=== PATIENT | male | born 1950 | race Caucasian/White ===

== ENCOUNTER → 2018-04-22 07:28 | Outpatient (CLI) | payer MEDICARE, OTHER, SELFPAY ==
[2018-04-22 07:48] LABS: Add Manual Diff / Slide Review NO; Basophils Percent Auto 0.7 % (0-2); Eosinophils Percent Auto 6.7 % (2-4); Hematocrit 46.5 % (41-53); Hemoglobin 15.4 g/dL (13.5-17.5); Lymphocytes Percent Auto 30.7 % (25-40); Mean Corpuscular HGB Conc 33.1 % (30-36); Mean Corpuscular Hemoglobin 28.3 PG (26-34); Mean Corpuscular Volume 85.6 fL (80-100); Monocytes Percent Auto 10.4 % (3-14); Neutrophils Absolute Auto 2800 /uL (3000-5900); Neutrophils Percent Auto 51.5 % (50-75); Platelet Count 267 X10^3/uL (150-400); Red Blood Cell Count 5.43 X10^6/uL (4.5-5.9); White Blood Cell Count 5.5 X10^3/uL (4.5-11.0)
[2018-04-22 08:03] LABS: Alanine Aminotransferase 35 IU/L (21-72); Albumin 4.3 g/dL (3.5-5.0); Albumin Globulin Ratio 1.4 (1.0-2.8); Alkaline Phosphatase 39 U/L (38-126); Aspartate Aminotransferase 26 IU/L (17-59); BUN Creatinine Ratio 23.8 (6-22); Bilirubin Total 0.8 mg/dL (0.2-1.3); Blood Urea Nitrogen 31 mg/dL (9-20); Calcium 9.8 mg/dL (8.4-10.2); Carbon Dioxide 26 mmol/L (22-32); Chloride 103 mmol/L (98-107); Cholesterol 167 mg/dL (140-199); Estimated Glomerular Filt Rate 55.1 mL/min (>60); Glucose 96 mg/dL (80-110); HDL Cholesterol 38 mg/dL (40-60); HEMOLYSIS < 15 (0-50); LDL Cholesterol Calculated 109 mg/dL (<100); Potassium 4.6 mmol/L (3.4-5.1); Sodium 142 mmol/L (137-145); Total Protein 7.3 g/dL (6.3-8.2); Triglycerides 99 mg/dL (35-150)
[2018-04-22 08:34] LABS: Prostate Specific Antigen Scrn 1.91 ng/mL (0.1-4.0)
== END ==
PROVIDERS: PCP Internal Medicine; Visit Provider Internal Medicine
DX: I10 Essential (primary) hypertension (principal); E78.00 Pure hypercholesterolemia, unspecified
CPT/HCPCS: 36415; 80053; 80061; 85025; G0103

== ENCOUNTER → 2018-04-22 07:47 | Outpatient (CLI) | payer MEDICARE, OTHER, SELFPAY ==
--- NOTE | 2018-04-22 | DI.RAD.S_ITS ---
PROCEDURE: XR HIP W PEL IF DONE LT MIN 4V INDICATIONS: LEFT SIDED HIP PAIN TECHNIQUE: AP pelvis with lateral view of the left hip. COMPARISON: None. FINDINGS: Bones: No fractures or dislocations. Pelvic ring appears intact. No suspicious bony lesions. Soft tissues: The visualized bowel gas pattern is normal. No suspicious soft tissue calcifications. IMPRESSION: Asymmetric hip joint osteoarthritis, moderately severe on the left and mild on the right. No trauma found. Dictated by: Bang Pillai M.D. on 04/22/2018 at 9:43 Approved by: Bang Pillai M.D. on 04/22/2018 at 9:47
== END ==
PROVIDERS: Family Provider Internal Medicine; PCP Internal Medicine; Visit Provider Internal Medicine
DX: M16.0 Bilateral primary osteoarthritis of hip (principal); M25.552 Pain in left hip
CPT/HCPCS: 36415; 73522; 80053; 80061; 85025; G0103

== ENCOUNTER → 2018-09-02 11:42 | Outpatient (CLI) | payer MEDICARE, OTHER, SELFPAY ==
--- NOTE | 2018-09-02 | DI.MRI.S_ITS ---
PROCEDURE: MR WRIST LT WO CON INDICATIONS: Left wrist pain, TFCC injury. TECHNIQUE: Noncontrast coronal proton density fast spin echo and T2 fast spin echo with fat saturation; coronal 3-D gradient echo, axial T1 spin echo and T2 fast spin echo with fat saturation, sagittal T1 spin echo through the wrist. COMPARISON: [facility], CR, XR WRIST 3+ VIEWS LEFT, 08/30/2018, 13:52. FINDINGS: Image quality: There is mild inhomogeneous fat saturation. Bones and cartilage: The carpal bones are normally aligned. No bone marrow contusions or fractures. There were mild osteoarthritic changes with cartilage thinning and small foci of subchondral edema. This includes mild degeneration of the 1st carpometacarpal joint as well as mild degeneration in the carpus with scattered small foci of subchondral edema. Mild degeneration also demonstrated along the radiocarpal joint. No evidence for avascular necrosis. Carpal ligaments: The scapholunate and lunotriquetral ligaments appear intact. In the absence of intra-articular contrast, the extrinsic carpal ligaments are not well identified. On sagittal images, the pisohamate ligament appears intact. Triangular fibrocartilage complex: The triangular fibrocartilage demonstrates mild degenerative tearing with evaluation limited in the absence of intra-articular contrast. The adjacent meniscal homolog also demonstrates mildly degenerative signal. The extensor carpi ulnaris tendon is normal in location and morphology. Tendons and soft tissues: The carpal tunnel structures appear normal, including the median nerve. The ulnar nerve appears normal within Guyon's canal. All six extensor tendon compartments demonstrate normal morphology, without pathologic tendon sheath fluid. No soft tissue ganglion cysts. IMPRESSION: 1. Mild degenerative tearing of the triangular fibrocartilage 2. Mild osteoarthritic changes in the carpus and along the radiocarpal joint. Dictated by: Evelio Guevara M.D. on 09/02/2018 at 14:35 Approved by: Evelio Guevara M.D. on 09/02/2018 at 14:47
== END ==
PROVIDERS: PCP Internal Medicine; Visit Provider Orthopaedic Surgery
DX: S69.82XA Other specified injuries of left wrist, hand and finger(s), initial encounter (principal)
CPT/HCPCS: 73221

== ENCOUNTER → 2019-06-28 08:31 | Outpatient (CLI) | payer MEDICARE, OTHER, SELFPAY ==
--- NOTE | 2019-06-28 | DI.RAD.S_ITS ---
PROCEDURE: XR HIP W PEL IF DONE BILAT 2V INDICATIONS: chronic hip pain TECHNIQUE: AP pelvis with lateral view(s) of the bilateral hip(s). COMPARISON: [facility], RASHAD, XR HIP W PEL IF DONE ROSAURA 3TO4V, 04/22/2018, 7:52. FINDINGS: Bones: No fractures or dislocations. Pelvic ring appears intact. No suspicious bony lesions. Soft tissues: The visualized bowel gas pattern is normal. No suspicious soft tissue calcifications. IMPRESSION: Mild asymmetric hip joint osteoarthritis, left greater than right. Dictated by: Bang Pillai M.D. on 06/28/2019 at 9:08 Approved by: Bang Pillai M.D. on 06/28/2019 at 9:09
[2019-06-28 09:20] LABS: Alanine Aminotransferase 24 IU/L (21-72); Albumin 4.6 g/dL (3.5-5.0); Albumin Globulin Ratio 1.5 (1.0-2.8); Alkaline Phosphatase 37 U/L (38-126); Aspartate Aminotransferase 27 IU/L (17-59); Bilirubin Total 0.7 mg/dL (0.2-1.3); Blood Urea Nitrogen 26 mg/dL (9-20); Calcium 10.4 mg/dL (8.4-10.2); Carbon Dioxide 24 mmol/L (22-32); Chloride 104 mmol/L (98-107); Cholesterol 164 mg/dL (140-199); Estimated Glomerular Filt Rate 54.9 mL/min (>60); Glucose 94 mg/dL (80-110); HDL Cholesterol 36 mg/dL (40-60); HEMOLYSIS < 15 (0-50); LDL Cholesterol Calculated 96 mg/dL (<100); Potassium 4.5 mmol/L (3.4-5.1); Sodium 140 mmol/L (137-145); Total Protein 7.6 g/dL (6.3-8.2); Triglycerides 162 mg/dL (35-150)
[2019-07-01 16:54] LABS: PSA Total 2.06 ng/mL (< 4.01)
== END ==
PROVIDERS: PCP Internal Medicine; Visit Provider Internal Medicine
DX: E78.00 Pure hypercholesterolemia, unspecified (principal); M15.0 Primary generalized (osteo)arthritis; Z12.5 Encounter for screening for malignant neoplasm of prostate
CPT/HCPCS: 36415; 73521; 80053; 80061; 84153; 84154; G0103

== ENCOUNTER → 2020-07-10 08:29 | Outpatient (CLI) | payer MEDICARE, OTHER, SELFPAY ==
[2020-07-10 09:51] LABS: Add Manual Diff / Slide Review NO; Basophils Absolute Auto 0 /uL (0-100); Basophils Percent Auto 0.6 % (0-2); Eosinophils Absolute Auto 200 /uL (0-450); Eosinophils Percent Auto 3.6 % (2-4); Hematocrit 46.3 % (41-53); Hemoglobin 15.4 g/dL (13.5-17.5); Lymphocytes Absolute Auto 1600 /uL (1100-4500); Lymphocytes Percent Auto 29.8 % (25-40); Mean Corpuscular HGB Conc 33.4 % (30-36); Mean Corpuscular Hemoglobin 29.2 PG (26-34); Mean Corpuscular Volume 87.5 fL (80-100); Monocytes Absolute Auto 500 /uL (0-900); Monocytes Percent Auto 9.2 % (3-14); Neutrophils Absolute Auto 3000 /uL (1500-7000); Neutrophils Percent Auto 56.8 % (50-75); Platelet Count 258 X10^3/uL (150-400); Red Blood Cell Count 5.29 X10^6/uL (4.5-5.9); Red Cell Distribution Width 13.7 % (11.6-14.8); White Blood Cell Count 5.3 X10^3/uL (4.5-11.0)
[2020-07-10 10:09] LABS: Alanine Aminotransferase 26 IU/L (<50); Albumin 4.5 g/dL (3.5-5.0); Albumin Globulin Ratio 1.6 (1.0-2.8); Alkaline Phosphatase 38 U/L (38-126); Aspartate Aminotransferase 36 IU/L (17-59); BUN Creatinine Ratio 20.8 (6-22); Bilirubin Total 0.7 mg/dL (0.2-1.3); Blood Urea Nitrogen 30 mg/dL (9-20); Calcium 10.4 mg/dL (8.4-10.2); Carbon Dioxide 27 mmol/L (22-32); Chloride 105 mmol/L (98-107); Cholesterol 165 mg/dL (140-199); Estimated Glomerular Filt Rate 48.6 mL/min (>60); Globulin 2.8 g/dL (1.7-4.1); Glucose 87 mg/dL (80-110); HDL Cholesterol 37 mg/dL (40-60); HEMOLYSIS < 15 (0-50); LDL Cholesterol Calculated 106 mg/dL (<100); Potassium 4.9 mmol/L (3.4-5.1); Sodium 140 mmol/L (137-145); Total Protein 7.3 g/dL (6.3-8.2); Triglycerides 112 mg/dL (35-150)
[2020-07-10 10:38] LABS: Prostate Specific Antigen Scrn 2.11 ng/mL (0.1-4.0)
== END ==
PROVIDERS: PCP Internal Medicine; Referring Provider Internal Medicine; Visit Provider Internal Medicine
DX: I10 Essential (primary) hypertension (principal); E78.00 Pure hypercholesterolemia, unspecified; Z12.5 Encounter for screening for malignant neoplasm of prostate
CPT/HCPCS: 36415; 80053; 80061; 85025; G0103

== ENCOUNTER → 2020-09-14 10:16 | Outpatient (CLI) | payer MEDICARE, OTHER, SELFPAY ==
[2020-09-16 02:28] LABS: COVID19 Sendout Not Detected (Not Detect)
== END ==
PROVIDERS: PCP Internal Medicine; Visit Provider Nurse Practitioner
DX: Z11.59 Encounter for screening for other viral diseases (principal)
CPT/HCPCS: 87635

== ENCOUNTER 2020-09-17 07:30 | Day surgery (SDC) | payer MEDICARE, OTHER, SELFPAY ==
[2020-09-17] VITALS (9 sets, daily range): BP systolic 105–128; BP diastolic 54–78; PULSE 78–88; RESP 12–20; TEMP 35.9–37.1; O2SAT 93–97
--- NOTE | 2020-09-17 | PATH_ITS ---
[facility] Accession Number: [id number] . 01 Material submitted: . colon - CECUM POLYP . 01 Clinical history: . SDC . 02 Diagnosis: Cecum, Polyp, Biopsy: Benign lymphoid aggregate. MRV 09/19/2020 1236 Local . 02 Electronically signed: . Shira Sotelo MD, Pathologist NPI- [id number] . 01 Gross description: . CECUM POLYP: Received in formalin is 1 fragment(s) of montes de oca, soft tissue measuring 0.3 x 0.3 x 0.3 cm submitted entirely in 1 cassette(s) /LUIS 09/18/2020 0142 Local . 02 Pathologist provided ICD-10: K63.5 . 02 CPT . 599635 Performed at: 01 [facility] [address] [place] [address], [place], [place] [id number] MD Evelio White MD Phone: [phone] Performed at: 02 [facility] [address] [place], [place] [id number] MD Shira Sotelo MD Phone: [phone]
[2020-09-17] MEDS: LACTATED RINGERS 1,000 ML 200 ML IV (08:01)
--- NOTE | 2020-09-17 08:57 | PM.HP.1 ---
History of Present Illness History of Present Illness Date Patient Seen: 09/17/20 Time Patient Seen: 08:57 Chief complaint: SDC Narrative: The patient is a gentleman whose last colonoscopy was 11 years ago. He is here for screening exam. Patient History Medical History GERD (gastroesophageal reflux disease) (Acute) High cholesterol (Acute) Hypertension (Acute) Family & Social History Social History: household members spouse Tobacco & Substance use: Smoking Status Never smoker alcohol intake current alcohol intake frequency a few times a week Substance Use Type does not use Meds Home Medications and Allergies Home Medications Medication Instructions Recorded Confirmed Type FENOFIBRATE (#TRICOR) 160 mg PO QDAY #0 05/04/12 09/17/20 History aspirin 81 mg PO DAILY 09/17/20 09/17/20 History atorvastatin 20 mg PO BEDTIME 09/17/20 09/17/20 History lisinopril 20 mg PO DAILY 09/17/20 09/17/20 History meloxicam 15 mg PO DAILY PRN 09/17/20 09/17/20 History Allergies Allergy/AdvReac Type Severity Reaction Status Date / Time milk [MILK] AdvReac Mild GI DISTRESS Verified 09/17/20 07:51 oxycodone [OXYCODONE] AdvReac Mild NAUSEA Verified 09/17/20 07:51 Review of Systems Review of Systems ROS: Yes All systems reviewed with the patient and are negative except as otherwise documented Exam Vital Signs (past 8 hours): - 09/17/20 07:55 Temperature 98.8 F Pulse Rate 88 Respiratory Rate 16 Blood Pressure 128/74 Pulse Oximetry 96 Oxygen Delivery Method Room Air Narrative Exam Narrative: Pleasant cooperative patient no apparent distress. Lungs are clear to auscultation. No rales or rhonchi. Heart regular rate and rhythm no murmur gallop. Abdomen is soft nontender without mass. No obvious hernias. Patient is alert and oriented x3. Assessment & Plan Assessment & Plan narrative: The patient for a screening colonoscopy. I have discussed the procedure with them. Risks of bleeding, perforation which would necessitate major operation, failure to find remove all lesions, the potential tattoo were all discussed. All questions were answered. They wished to proceed.
--- NOTE | 2020-09-17 08:58 | PM.PREOP ---
Pre-operative Note COVID-19 COVID-19 status: Negative Result date/Date tested (Pos, Neg/Pending): 09/14/20 Interval Note History & Physical reviewed/Exam performed by Physician: Yes Changes to H&P: No ASA Class (for procedural sedation): II
[2020-09-17] MEDS: MIDAZOLAM 5 MG/5 ML VIAL IV (09:15)
[2020-09-17] MEDS: fentaNYL 250 MCG/5 ML INJ IV (09:15)
--- NOTE | 2020-09-17 09:35 | PM.OP.ENDO ---
Operative Date/Time/Diagnoses Date of procedure: 09/17/20 Time of procedure: 09:21 Pre-op diagnosis: Screening exam. Last exam 11 years ago. Post-op diagnosis: same (One tiny lesion in the cecum) Procedure & Clinicians Study performed: Colonoscopy with cold biopsy Same procedure as scheduled: Yes Indications: Screening Surgeon: Saulo Christensen Procedure Notes SCOAP/Timeout: Performed Procedure in detail: The patient was placed in the left lateral decubitus position and underwent IV sedation directed by the surgeon consisting of fentanyl and Versed. Digital exam was remarkable for mild enlargement of his prostate. The scope was inserted and advanced through the rectum into the sigmoid, descending, transverse, and ascending colon. No lesions were seen.. The cecum was reached identified by the ileocecal valve and the appendiceal opening. The ileocecal valve was successfully cannulated. The patient had a very tiny irregularity in the cecum which I biopsied and removed. The terminal ileum was normal in appearance. The scope was gradually brought out. No Polyps were found. The scope ultimately was retroflexed in the rectum. The appearance was normal in appearance except for engorged veins.. The scope was removed and the patient tolerated the procedure well. Prep was very good. Scope withdrawal time: 6 minutes Sedation minutes: 13 Findings: polyp (one tiny) Specimen(s): other (polyp) Complications: none Post-procedure Recommendations: Colonscopy in 5 years (May be longer depending on the pathology report) Follow up: as needed Disposition: PACU
--- NOTE | 2020-09-17 09:37 | SUR.PHASEI ---
Placed on 02, room air sats dropped to 87, 2/l nasal cannula.
--- NOTE | 2020-09-17 09:56 | SUR.PHASEII ---
called, d/c instructions discussed, she voiced an understanding per request pt to be picked up at ER entrance.
--- NOTE | 2020-09-17 10:13 | SUR.PHASEII ---
Pt started to dress, had sudden onset of nausea, then vomited. Ondansetron ordered, awaiting med in pyxis
[2020-09-17] MEDS: ONDANSETRON 4 MG ODT SL (10:16)
--- NOTE | 2020-09-17 10:16 | SUR.PHASEII ---
Ondansetron given, pt sitting on side of bed.
--- NOTE | 2020-09-17 10:22 | SUR.PHASEII ---
Nausea almost gone, report to [facility]
--- NOTE | 2020-09-17 11:13 | SUR.PHASEII ---
1105 - Patient dressed and no longer nauseated. Has eaten crackers and eddy elissa. Left building in good condition.
== END 2020-09-17 11:05 | disposition home or self-care (01) ==
PROVIDERS: PCP Internal Medicine; Referring Provider Internal Medicine; Visit Provider Specialist
PROC: 0DJD8ZZ Inspection of Lower Intestinal Tract, Via Natural or Artificial Opening Endoscopic (ICD-10-PCS; CPT 45378; principal; 2020-09-17 08:30)
DX: Z12.11 Encounter for screening for malignant neoplasm of colon (principal); K21.9 Gastro-esophageal reflux disease without esophagitis; E78.00 Pure hypercholesterolemia, unspecified; I10 Essential (primary) hypertension
CPT/HCPCS: G0121; 99152; J2250; J3010

== ENCOUNTER → 2022-03-27 10:41 | Outpatient (CLI) | payer MEDICARE, OTHER, SELFPAY ==
[2022-03-27 11:32] LABS: Influenza A - CEPHEID Flu A NEGATIVE (NEGATIVE); Influenza B - CEPHEID Flu B NEGATIVE (NEGATIVE)
[2022-03-27 11:36] LABS: COVID-19 CEPHEID PCR (VTM/NP) Negative (Negative)
== END ==
PROVIDERS: PCP Internal Medicine; Visit Provider Physician Assistant
DX: Z20.822 Contact with and (suspected) exposure to COVID-19 (principal); R05.9 Cough, unspecified
CPT/HCPCS: 0240U

== ENCOUNTER → 2022-09-12 09:14 | Outpatient (CLI) | payer MEDICARE, OTHER, SELFPAY ==
[2022-09-12 12:08] LABS: Add Manual Diff / Slide Review NO; Basophils Absolute Auto 0 /uL (0-100); Basophils Percent Auto 0.8 % (0-2); Eosinophils Absolute Auto 300 /uL (0-450); Eosinophils Percent Auto 6.2 % (2-4); Hematocrit 48.9 % (41-53); Lymphocytes Absolute Auto 1500 /uL (1100-4500); Lymphocytes Percent Auto 32.7 % (25-40); Mean Corpuscular HGB Conc 32.8 % (30-36); Mean Corpuscular Hemoglobin 26.9 PG (26-34); Monocytes Absolute Auto 900 /uL (0-900); Monocytes Percent Auto 18.4 % (3-14); Neutrophils Absolute Auto 1900 /uL (1500-7000); Neutrophils Percent Auto 41.9 % (50-75); Platelet Count 225 X10^3/uL (150-400); Red Blood Cell Count 5.96 X10^6/uL (4.5-5.9); Red Cell Distribution Width 14.6 % (11.6-14.8); White Blood Cell Count 4.6 X10^3/uL (4.5-11.0)
[2022-09-12 14:00] LABS: Alanine Aminotransferase 29 IU/L (<50); Albumin 4.2 g/dL (3.5-5.0); Albumin Globulin Ratio 1.4 (1.0-2.8); Alkaline Phosphatase 58 U/L (38-126); Aspartate Aminotransferase 34 IU/L (17-59); BUN Creatinine Ratio 16.4 (6-22); Bilirubin Total 0.5 mg/dL (0.2-1.3); Blood Urea Nitrogen 24 mg/dL (9-20); Calcium 9.7 mg/dL (8.4-10.2); Carbon Dioxide 25 mmol/L (22-32); Chloride 105 mmol/L (98-107); Cholesterol 173 mg/dL (140-199); Estimated Glomerular Filt Rate 51 mL/min (>60); Glucose 92 mg/dL (80-110); HDL Cholesterol 29 mg/dL (40-60); HEMOLYSIS < 15 (0-50); LDL Cholesterol Calculated 124 mg/dL (<100); Potassium 4.6 mmol/L (3.4-5.1); Sodium 140 mmol/L (137-145); Total Protein 7.2 g/dL (6.3-8.2); Triglycerides 98 mg/dL (35-150); Uric Acid 4.6 mg/dL (3.5-8.5)
[2022-09-12 14:25] LABS: Prostate Specific Antigen 2.98 ng/mL (0.10-4.00)
== END ==
PROVIDERS: PCP Family Medicine; Referring Provider Family Medicine; Visit Provider Family Medicine
DX: E78.5 Hyperlipidemia, unspecified (principal); I10 Essential (primary) hypertension; N40.0 Benign prostatic hyperplasia without lower urinary tract symptoms; K21.9 Gastro-esophageal reflux disease without esophagitis; M10.9 Gout, unspecified; N18.9 Chronic kidney disease, unspecified
CPT/HCPCS: 36415; 80053; 80061; 84153; 84550; 85025

== ENCOUNTER → 2023-01-08 14:12 | Outpatient (CLI) | payer MEDICARE, OTHER, SELFPAY ==
[2023-01-08 15:14] LABS: Uric Acid 4.4 mg/dL (3.5-8.5)
== END ==
PROVIDERS: PCP Family Medicine; Referring Provider Family Medicine; Visit Provider Family Medicine
DX: E78.5 Hyperlipidemia, unspecified (principal); I10 Essential (primary) hypertension; M10.9 Gout, unspecified; N40.0 Benign prostatic hyperplasia without lower urinary tract symptoms
CPT/HCPCS: 36415; 84550

== ENCOUNTER → 2023-04-27 08:54 | Outpatient (CLI) | payer MEDICARE, OTHER, SELFPAY ==
[2023-04-27 10:29] LABS: Add Manual Diff / Slide Review NO; Basophils Absolute Auto 0 /uL (0-100); Basophils Percent Auto 0.6 % (0-2); Eosinophils Absolute Auto 200 /uL (0-450); Eosinophils Percent Auto 3.2 % (2-4); Hemoglobin 16.2 g/dL (13.5-17.5); Lymphocytes Absolute Auto 1600 /uL (1100-4500); Lymphocytes Percent Auto 26.9 % (25-40); Mean Corpuscular Hemoglobin 28.5 PG (26-34); Mean Corpuscular Volume 86.2 fL (80-100); Monocytes Absolute Auto 600 /uL (0-900); Monocytes Percent Auto 9.7 % (3-14); Neutrophils Absolute Auto 3400 /uL (1500-7000); Neutrophils Percent Auto 59.6 % (50-75); Platelet Count 251 X10^3/uL (150-400); Red Blood Cell Count 5.68 X10^6/uL (4.5-5.9); Red Cell Distribution Width 14.6 % (11.6-14.8); White Blood Cell Count 5.8 X10^3/uL (4.5-11.0)
[2023-04-27 10:55] LABS: Alanine Aminotransferase 28 IU/L (<50); Albumin 4.4 g/dL (3.5-5.0); Albumin Globulin Ratio 1.6 (1.0-2.8); Alkaline Phosphatase 40 U/L (38-126); Aspartate Aminotransferase 31 IU/L (17-59); BUN Creatinine Ratio 16.3 (6-22); Bilirubin Total 0.8 mg/dL (0.2-1.3); Blood Urea Nitrogen 22 mg/dL (9-20); Calcium 9.3 mg/dL (8.4-10.2); Carbon Dioxide 26 mmol/L (22-32); Chloride 104 mmol/L (98-107); Estimated Glomerular Filt Rate 56 mL/min (>60); Globulin 2.7 g/dL (1.7-4.1); Glucose 87 mg/dL (80-110); HEMOLYSIS < 15 (0-50); Potassium 4.5 mmol/L (3.4-5.1); Sodium 139 mmol/L (137-145); Total Protein 7.1 g/dL (6.3-8.2)
== END ==
PROVIDERS: PCP Family Medicine; Referring Provider Family Medicine; Visit Provider Family Medicine
DX: I10 Essential (primary) hypertension (principal)
CPT/HCPCS: 36415; 80053; 85025

== ENCOUNTER → 2023-08-14 12:15 | Outpatient (CLI) | payer MEDICARE, OTHER, SELFPAY ==
--- NOTE | 2023-08-14 12:16 | DI.MRI.S_ITS ---
PROCEDURE: MR LUMBAR SPINE WO CON INDICATIONS: Spinal stenosis, lumbar region with neurogenic cla TECHNIQUE: Noncontrast sagittal T1 spin echo and T2 fast echo, sagittal STIR, and T2 fast spin echo through the lumbar spine. In cases with scoliosis, additional coronal T2 fast spin echo may be performed. COMPARISON: None. FINDINGS: Image quality: Excellent. Alignment and Curvature: Grade 2 anterior spondylolisthesis at L5-S1 associated with bilateral L5 pars defects. Pars defect in the left L4 vertebra noted as well without spondylolisthesis Bone Marrow: As above. Multifocal vertebral body hemangiomas noted, largest in the L3 vertebral body measures 1.4 cm. Degenerative chronic endplate changes L5-S1. Spinal Cord: Conus medullaris terminates at the L1 level. Visualized cord demonstrates normal signal and size. Paraspinous Soft Tissues: No paravertebral masses. T12-L1: Disc space narrowing with supine frontal disc bulge. Mild central and no foraminal stenosis L1-L2: Mild hypertrophic facet joints without central or foraminal stenosis L2-L3: Normal appearance. L3-L4: Normal appearance. L4-L5: Disc height is preserved. Circumferential disc bulge and hypertrophic facet joints associated with moderate central stenosis. Moderate left and mild right foraminal stenosis. L5-S1: Disc space narrowing and grade 2 anterior spondylolisthesis present. No central stenosis. Severe bilateral foraminal stenosis IMPRESSION: Grade 2 isthmic spondylolisthesis at L5-S1 results in severe bilateral foraminal stenosis. Degenerative disc disease and arthropathy at L4-5 associated with moderate central stenosis Approved by: Chung Lombardo M.D. on 08/16/2023 at 12:17
== END ==
PROVIDERS: PCP Family Medicine; Referring Provider Physical Medicine & Rehabilitation; Visit Provider Physical Medicine & Rehabilitation
DX: M48.062 Spinal stenosis, lumbar region with neurogenic claudication (principal); M43.17 Spondylolisthesis, lumbosacral region; M51.36 Other intervertebral disc degeneration, lumbar region; M47.816 Spondylosis without myelopathy or radiculopathy, lumbar region
CPT/HCPCS: 72148

== ENCOUNTER → 2023-09-14 12:41 | Outpatient (CLI) | payer MEDICARE, OTHER, SELFPAY ==
--- NOTE | 2023-09-14 12:48 | DI.CT.S_ITS ---
PROCEDURE: CT LUMBAR SPINE WO CON INDICATIONS: Spinal stenosis, lumbar region with neurogenic cla TECHNIQUE: Noncontrast 3 mm thick sections acquired from the T12 level to the sacrum. Sagittal and coronal reformats were constructed. For radiation dose reduction, the following was used: automated exposure control. COMPARISON: None. FINDINGS: Image quality: Excellent. Bones: Grade 1 anterolisthesis of L5 on S1. Bilateral L5-S1 pars interarticularis defects. There is multilevel facet arthropathy, worse at L4-5 and L5-S1. Multilevel disc height loss with degenerative endplate changes and spurring is present. Severe disc height loss at L5-S1. There is severe bilateral neural foraminal stenosis at L5-S1. Posterior disc osteophyte at T12-L1 resulting in at least mild central canal stenosis. At least moderate central canal stenosis at L4-L5 secondary to disc bulge and facet hypertrophy with thickened ligamentum flavum. Soft tissues: No retroperitoneal masses or hematomas. Visualized aorta is normal in caliber. Atherosclerotic vascular calcifications. IMPRESSION: 1. Multilevel degenerative changes of the lumbar spine, most severe at L5-S1. There is severe bilateral neural foraminal stenosis at L5-S1. 2. Grade 1 anterolisthesis of L5-S1 with bilateral pars interarticularis defects. 3. At least moderate central canal stenosis at L4-5. No significant central canal stenosis at other levels. Dictated by: John Burch M.D. on 09/14/2023 at 14:24 Approved by: John Burch M.D. on 09/14/2023 at 14:27
== END ==
PROVIDERS: PCP Family Medicine; Referring Provider Orthopaedic Surgery Orthopaedic Surgery of the Spine; Visit Provider Orthopaedic Surgery Orthopaedic Surgery of the Spine
DX: M48.062 Spinal stenosis, lumbar region with neurogenic claudication (principal); M47.816 Spondylosis without myelopathy or radiculopathy, lumbar region; M47.817 Spondylosis without myelopathy or radiculopathy, lumbosacral region; M48.07 Spinal stenosis, lumbosacral region; M43.17 Spondylolisthesis, lumbosacral region
CPT/HCPCS: 72131

== ENCOUNTER → 2023-11-03 13:45 | Outpatient (CLI) | payer MEDICARE, OTHER, SELFPAY ==
[2023-11-03 15:07] LABS: Add Manual Diff / Slide Review NO; Basophils Absolute Auto 0 /uL (0-100); Basophils Percent Auto 0.6 % (0-2); Eosinophils Absolute Auto 300 /uL (0-450); Eosinophils Percent Auto 4.2 % (2-4); Hematocrit 47.7 % (41-53); Hemoglobin 15.8 g/dL (13.5-17.5); Lymphocytes Absolute Auto 2200 /uL (1100-4500); Lymphocytes Percent Auto 33.1 % (25-40); Mean Corpuscular HGB Conc 33.2 % (30-36); Mean Corpuscular Hemoglobin 28.9 PG (26-34); Monocytes Absolute Auto 600 /uL (0-900); Monocytes Percent Auto 8.9 % (3-14); Neutrophils Absolute Auto 3600 /uL (1500-7000); Neutrophils Percent Auto 53.2 % (50-75); Platelet Count 250 X10^3/uL (150-400); Red Blood Cell Count 5.48 X10^6/uL (4.5-5.9); Red Cell Distribution Width 14.1 % (11.6-14.8); White Blood Cell Count 6.7 X10^3/uL (4.5-11.0)
[2023-11-03 15:25] LABS: Hemoglobin A1C% w Est Avg Glu 5.5 % (4.0-6.0)
[2023-11-03 15:30] LABS: Blood Urea Nitrogen 27 mg/dL (9-20); Calcium 10.2 mg/dL (8.4-10.2); Carbon Dioxide 25 mmol/L (22-32); Chloride 105 mmol/L (98-107); Estimated Glomerular Filt Rate > 60 mL/min (>60); Glucose 80 mg/dL (80-110); HEMOLYSIS < 15 (0-50); Potassium 4.3 mmol/L (3.4-5.1); Sodium 139 mmol/L (137-145)
== END ==
PROVIDERS: PCP Family Medicine; Referring Provider Orthopaedic Surgery Orthopaedic Surgery of the Spine; Visit Provider Orthopaedic Surgery Orthopaedic Surgery of the Spine
DX: Z01.818 Encounter for other preprocedural examination (principal); R73.9 Hyperglycemia, unspecified; Z01.812 Encounter for preprocedural laboratory examination
CPT/HCPCS: 36415; 80048; 83036; 85025; 93005; 93010

== ENCOUNTER 2024-01-05 11:10 | Inpatient (IN) | payer MEDICARE, OTHER, SELFPAY ==
[2023-11-25 08:24] VITALS: BMI 32.2
[2024-01-05] VITALS (12 sets, daily range): BP systolic 90–131; BP diastolic 54–89; PULSE 84–101; RESP 9–20; TEMP 36.1–36.7; O2SAT 93–100; BMI 32.2
--- NOTE | 2024-01-05 | DI.RAD.S_ITS ---
PROCEDURE: XR LUMBAR SPINE 2-3V INDICATIONS: L4-5 L5-S1 TLIF TECHNIQUE: 3 fluoroscopic images of the lower lumbar spine are provided COMPARISON: None. FINDINGS/IMPRESSION: Three limited intra procedural fluoroscopic images of the partially visualized lumbar spine are provided with orthopedic hardware present. See operative note for findings. Fluoro time: 12 seconds Approved by: Saulo Waldron M.D. on 01/06/2024 at 11:16
--- NOTE | 2024-01-05 11:31 | PM.HP.1 ---
History of Present Illness History of Present Illness Date Patient Seen: 01/05/24 Time Patient Seen: 14:05 Date of Onset of Symptoms: 05/25/17 Chief complaint: back pain, left leg ache Narrative: 73-year-old male who presented to Dr Mccollum in August 2023 for evaluation of low back and left lower extremity pain. He has a prior history of left hip arthroplasty with Dr. Ortiz March 2022. He reports that the symptoms have been present for a few years, in the lower lumbar spine with symptoms into the left buttock and posterior thigh occasionally to the calf. This typically worsens with prolonged sitting, standing and activity and walking. His treatment to date has included physical therapy at [facility]. He is retired, previously worked in IT. Patient was referred by Dr Dozier to discus ongoing low back pain. Patient notes that conservative treatments have not been effective. Treatments have included NSAIDS, and PT. He has back pain, leg pain, numbness and weakness worse left than right side. He has tried NSAIDs without much relief. He used to walk several miles for exercise and he is currently only able to walk a few blocks limited by his back and leg pain. He has equally limiting back pain and leg pain with numbness and weakness. His MRI shows severe spinal stenosis at L4-5, severe foramen stenosis at L5-S1 with L5-S1 spondylolisthesis measuring 10 mm. [facility] Medical History Spinal stenosis Chronic kidney disease Coronary artery disease GERD (gastroesophageal reflux disease) Hyperlipidemia Hypertension BPH (benign prostatic hyperplasia) Gout High cholesterol Surgical History H/O vasectomy Hx of colonoscopy H/O tooth extraction (11/2021) Anesthesia History of hip replacement (~03/2022) History of hemorrhoidectomy Family History Father Congestive heart failure Hyperlipidemia Hypertension Mother Stroke Brother Cancer Social History household members: spouse Smoking Status: Never smoker alcohol intake: current Meds Home Medications and Allergies Home Medications Medication Instructions Recorded Confirmed Type aspirin 81 mg chewable tablet 81 mg PO DAILY 09/17/20 01/05/24 History atorvastatin 20 mg tablet 20 mg PO BEDTIME #90 tabs 01/08/23 01/05/24 Rx fenofibrate 160 mg tablet 160 mg PO DAILY #90 tabs 01/08/23 01/05/24 Rx lisinopril 20 mg tablet 20 mg PO DAILY #90 tabs 01/08/23 01/05/24 Rx terazosin 2 mg capsule 2 mg PO BEDTIME #90 caps 08/31/23 01/05/24 Rx omeprazole 20 mg capsule,delayed 20 mg PO DAILY 01/05/24 01/05/24 History release Allergies Allergy/AdvReac Type Severity Reaction Status Date / Time terazosin AdvReac Intermediate Lip Verified 01/05/24 12:55 swelling, dry mouth milk [MILK] AdvReac Mild GI DISTRESS Verified 01/05/24 12:55 oxycodone [OXYCODONE] AdvReac Mild Nausea/vomi Verified 01/05/24 12:55 ting Review of Systems Review of Systems ROS: Yes All systems reviewed with the patient and are negative except as otherwise documented Exam Back/Spine/Pelvis Other: painful ROM of lumbar at Lumbosacral junction Neuro Other: + straight leg raise to LLE. sensibility decreased to left L4, L5, S1 dermatome Motor strength 4/5 in left TA, EHL and plantarflexion - Clonus BLE Assessment & Plan Assessment & Plan narrative: Mr. Menendez is here for evaluation of his lumbar spine. He has equally limiting back pain and leg pain with numbness and weakness. His MRI shows severe spinal stenosis at L4-5, severe foramen stenosis at L5-S1 with L5-S1 spondylolisthesis measuring 10 mm. I discussed my findings with him. He will benefit from lumbar decompression and fusion at L4-5, L5-S1 level with removal of bilateral lamina and facet joints for decompression, which will render his lumbar further unstable and require a fusion surgery at the same time. Risks for surgery include but not limited to bleeding, infection, nerve/dura/bladder/bowel/blood vessel injury, need for additional procedure, even . Patient understands and would like to proceed with surgery. I scheduled him for L4-5, L5-S1 TLIF.
[2024-01-05] MEDS: ACETAMINOPHEN 325 MG TABLET 975 MG PO (12:52)
[2024-01-05] MEDS: GABAPENTIN 600 MG TABLET PO (12:53)
[2024-01-05] MEDS: LACTATED RINGERS 1,000 ML 42 ML IV ×3 (12:54→17:21)
[2024-01-05] MEDS: CEFAZOLIN 2 GM/100 ML PREMIX 100 ML IV ×2 (14:50→22:13)
--- NOTE | 2024-01-05 14:50 | SUR.OPER ---
Prone on spine table, head in foam head support, padded chest and pelvic supports, gel pad at knees, lower legs supported by pillows; nipples, genitalia and toes free of pressure, arms secured on foam padded arm boards at <90 degrees abduction. Tape over blanket at thigh secured to table.
[2024-01-05] MEDS: BUPIVACAINE 0.25% (PF) 60 ML, EPINEPHrine 0.15 MG INJ (15:12)
[2024-01-05] MEDS: BUPIVACAINE LIPOSOME 266 MG/20 ML VIAL INJ (15:13)
--- NOTE | 2024-01-05 18:45 | PM.OP.1 ---
Operative Date/Time/Diagnoses Date of procedure: 01/05/24 Time of procedure: 15:30 Pre-op diagnosis: 1. L4-5, L5-S1 spinal stenosis 2. L5-S1 spondylolisthesis Post-op diagnosis: same Procedure & Clinicians Procedure: 1. L4-5, L5-S1 Postero-lateral and posterior interbody fusion 2. L4-5, L5-S1 interbody cage placement. 3. L4-5, L5-S1 decompressive laminectomy with bilateral facetecomies 4. L4-5, L5-S1 Posterior segmental instrumentation 5. Torrington of bone marrow from iliac crest 6. Utilization of microsurgical technique and operating microscope 7. Utilization of robotic assisted navigation Same procedure as scheduled: Yes Indications: Patient has been having chronic back pain and worsening lumbar radiculopathy mostly in the left leg. Patient was found have a grade 2 anterolisthesis at L5-S1 with severe foraminal stenosis left worse than right at L4-5 and L5-S1 level correlating with his back pain as well as leg pain. Patient failed multiple conservative management with worsening pain weakness and numbness in his lower extremity. Patient has been having difficulty performing activity of daily living. After discussing risks benefits of treatment options, patient elected proceed with surgery. Surgeon: Baldo Mccollum [employer] Professor: Evy Lozano Click Yes if Unassisted: No Anesthesia Type: General Operative Notes Closure Type: primary Specimen(s): none sent Prosthetic devices, grafts, tissues, transplants, or devices: Globus CREO MIS screws, Rise cages Applied: catheter Estimated Blood Loss (mL): 200 Blood products transfused: none Procedure in detail: Patient was seen in the preoperative area. Risks and benefits of the surgery was discussed with the patient. Informed consent was obtained from the patient and placed in the chart. Surgical site was marked. Patient was taken to the operative room. General anesthesia was administered. Prophylactic antibiotic was given to the patient less than 30 min before the incision was made. Patient was placed into a prone position on the Blanco table. Patient's back was then prepped and draped in the sterile fashion. Time-out was performed at this time. After patient was prepped and draped, patient's PSIS was palpated and marked bilaterally. Small 1 cm incision was made over the PSIS for placement of the reference probes. Two trocar was placed into the PSIS 1 on each side. The reference probe was attached to the trocar of the reference apparatus. At this time the C-arm imaging was used to confirm AP and lateral of L4-L5, L5-S1 vertebrae and merged the C-arm imaging using the BizSlate robotic navigation system with the CT of the lumbar spine. After successful merging was completed and confirmed, skin marker was used to alton out the skin incision using the BizSlate robotic arm. Bilateral incision was made at this time. Pre templated trajectory was used and guided using the BizSlate robotic navigation system for bilateral L4, L5, S1 pedicle screw placement. This was done by using the robotic arm to guide the high-speed bur to make a cortical entry point. Next a drill was placed also using the robotic arm and guided using the navigation system drilling partially through bilateral L4, L5 and S1 pedicles. Next L4, L5, S1 pedicle screws it was pre templated and measured was placed onto the power lease purchase truck driver and inserted into the pedicles bilaterally. After all 6 screws were placed C-arm imaging was taken of both AP and lateral to confirm the placement. Excellent placement of the screws were confirmed and a matched precisely with the pre planned screw placement using the navigation system. MARs retractor was inserted using [employer] guidence. Globus MARS retractors was placed inside the incision and docked onto the L4 and L5 lamina. Using microsurgical technique and operating microscope, a L4, L5 laminectomy and L4-5, L5-S1 facetectomy was performed using a Kerrison rongeur. The laminectomy and facetectomy was performed in order to decompress patient's cauda equina as well as the nerve roots exiting at the L4-5, L5-S1 level. Patient was found have severe lateral recess and neural foramen stenosis which was fully decompressed after the laminectomy facetectomy at both levels. More than 75% of the facets were removed during the process of decompression rendering L4-5, L5-S1 level grossly unstable and required a fusion procedure at the same time. The disc space at L4-5, L5-S1 was identified, and a total diskectomy was performed at L4-5, L5-S1 level. The endplates were decorticated using a rasp and shaver. The total diskectomy and decortication was performed at L4-5, L5-S1 level in order to to accomplish a L4-5, L5-S1 fusion. The local bone from the laminectomy and facetectomy was saved for local bone grafting. After the total diskectomy and decortication was completed, DBM bone graft material was combined with local bone that was harvested earlier. At this time, a separate skin is incision was made over the iliac crest. A Jamshidi needle was inserted into the iliac crest through a separate skin incision. 5 cc of bone marrow aspiration was obtained through the separate skin incision using a Jamshidi needle from the iliac crest. The bone marrow aspiration was combined with local bone and the DBM bone grafting material. The bone grafting material was placed into the L4-5, L5-S1 interbody space along with a expandable cage. The cage was expanded to its maximum height using the torque limiting screwdriver. The disc preparation as well as the cage insertion were also performed under navigation guidance. After the cage was placed, AP and lateral C-arm imaging was taken to confirm placement of the cage and excellent position was confirmed. Globus MARS retractor was inserted and docked onto the L4-5, L5-S1 posterolateral gutter on the right side. Using the power drill, posterior-lateral decortication was performed at L4-5, L5-S1 level until bleeding cortical bone was identified. The remaining bone grafting material was placed into the L4-5, L5-S1 posterior lateral gutter he order to accomplish posterolateral fusion at the L4-5, L5-S1 level. At this time the tulips were attached to the L4, L5, S1 pedicle screw shanks. After measuring the length of the rods, they were inserted into the tulips of the pedicle screws and locked in place using locking caps and torque limiting screwdriver bilaterally. Total 6 caps and 2 titanium rods was used in order to complete the posterior instrumentation construct. After all the hardware was placed, and confirmed with AP and lateral C-arm imaging, the wound was then irrigated with sterile normal saline and packed with Ray-Annabelle gauze for 3 min to accomplish hemostasis. After the gauze was removed the deep fascia was closed with #1 Vicryl suture. The subcutaneous layer was closed with 2-0 Vicryl. The skin was closed with skin edward. Patient tolerated the procedure well. There were no complications. Neuro monitoring system was used to monitor patient's neurologic status throughout entire procedure. There was no disturbance of the neural monitoring signals throughout the case. Complications: none Post-operative Condition: stable Disposition: PACU Plan for aftercare: Admit to inpatient hospital
[2024-01-05] MEDS: hydrOXYzine 50 MG/ML INJ 25 MG IM (19:31)
[2024-01-05] MEDS: HYDROCODONE/ACET 5/325 TABLET 1 TAB PO (19:52)
--- NOTE | 2024-01-05 20:06 | SUR.PHASEI ---
Report called to Starla.
[2024-01-05] MEDS: LACTATED RINGERS 1,000 ML 125 ML IV (20:30)
[2024-01-05] MEDS: ATORVASTATIN 20 MG TABLET PO (22:12)
[2024-01-05] MEDS: SENNOSIDES 8.6 MG TABLET 17.2 MG PO (22:13)
[2024-01-05] MEDS: DOCUSATE 100 MG CAPSULE PO (22:13)
[2024-01-05] MEDS: ACETAMINOPHEN 325 MG TABLET 650 MG PO (22:58)
[2024-01-06] MEDS: HYDROCODONE/ACET 5/325 TABLET 2 TAB PO ×2 (00:05→04:27)
--- NOTE | 2024-01-06 01:10 | PC.ADMIT ---
[email or web address] [facility] Admission Note: The patient,Kyree Menendez,73 y/o, was given written information regarding hospital policies, unit procedures and contact persons. Patient's smoking status: Never smoker. Vital Signs - 8 hr 01/05/24 19:09 01/05/24 19:14 01/05/24 19:19 Temperature 97.6 F Pulse Rate 94 H 94 H 98 H Respiratory Rate 9 L 14 16 Blood Pressure 94/60 92/62 92/59 L Pulse Oximetry 95 96 98 Oxygen Delivery Method Simple Mask Simple Mask Room Air Oxygen Flow Rate 8 8 01/05/24 19:24 01/05/24 19:34 01/05/24 19:44 Temperature Pulse Rate 92 H 97 H 91 H Respiratory Rate 14 14 13 Blood Pressure 95/62 100/68 90/65 Pulse Oximetry 93 93 93 Oxygen Delivery Method Room Air Room Air Room Air Oxygen Flow Rate 01/05/24 19:54 01/05/24 20:29 01/05/24 20:53 Temperature 98.1 F 97 F L 97.1 F L Pulse Rate 94 H 95 H 93 H Respiratory Rate 12 20 Blood Pressure 110/77 122/65 106/72 Pulse Oximetry 96 97 96 Oxygen Delivery Method Room Air Oxygen Flow Rate 0 0 01/05/24 21:23 01/05/24 21:23 01/05/24 23:23 Temperature Pulse Rate 96 H 94 H 101 H Respiratory Rate Blood Pressure 115/73 113/65 99/54 L Pulse Oximetry 98 100 95 Oxygen Delivery Method Oxygen Flow Rate 0 0 0 01/05/24 23:24 Temperature Pulse Rate Respiratory Rate Blood Pressure Pulse Oximetry Oxygen Delivery Method Room Air Oxygen Flow Rate Patient admitted to room 212 from PACU following lumbar fusion. Is alert and oriented. Breath sounds CTA with RA sat of 97%; placed on continuous pulse oximetry. HRR with good BP although on last check was hypotensive at 99/54 but asymptomatic. Denied nausea and actually ate 2 sandwiches, crackers, juice and applesauce and tolerated well. On admission he stated his pain was 4/10 and then later he was 3/10 and requested/medicated with Tylenol. After 1 hour he stated his pain had progressed to 4/10 so medicated with 1 vicodin since he had 650mg of tylenol earlier. BT present but denied flatus. Has indwelling catheter with clear, yellow urine. Educated on log rolling and was assisted into a side lying position and instructed to call when needing to turn. Dressing to back intact with shadow drainage which was outlined by PACU nurse without any increase in drainage noted. Bilateral calf SCD's were applied. Fall risk score is moderate and bed alarm activated. Instructed in use of call light and bed controls.
[2024-01-06 04:00] VITALS: BP 108/60; PULSE 90; RESP 20; TEMP 36.7; O2SAT 94
[2024-01-06 04:40] LABS: Hematocrit 42.9 % (41-53); Hemoglobin 14.2 g/dL (13.5-17.5)
[2024-01-06] MEDS: LACTATED RINGERS 1,000 ML 125 ML IV (05:05)
[2024-01-06] MEDS: PANTOPRAZOLE DR 20 MG TABLET PO (05:38)
[2024-01-06] MEDS: CEFAZOLIN 2 GM/100 ML PREMIX 100 ML IV (05:44)
[2024-01-06 08:53] VITALS: BP 100/53; PULSE 90; RESP 18; TEMP 36.9; O2SAT 93
--- NOTE | 2024-01-06 08:59 | PT.IIE ---
Current Diagnoses Spondylolisthesis, lumbar region (01/05/24) Spinal stenosis, lumbar region with neurogenic claudication (01/05/24) Surgery Performed Operation Date: 01/05/24 12:45 Actual Procedures p L4-5, L5-S1 TLIF with posterior instrumentation- Robot(Not Applicable) - Baldo Mccollum MD Surgical History (Last Reviewed 01/05/24 @ 14:05 by Baldo Mccollum MD) Anesthesia H/O tooth extraction (11/2021) H/O vasectomy History of hemorrhoidectomy History of hip replacement (~03/2022) Hx of colonoscopy Medical History (Last Reviewed 01/05/24 @ 14:05 by Baldo Mccollum MD) BPH (benign prostatic hyperplasia) Chronic kidney disease Coronary artery disease GERD (gastroesophageal reflux disease) Gout High cholesterol Hyperlipidemia Hypertension Spinal stenosis Physical Therapy Inpatient Evaluation/Re-Eval M1 PT/OT-IP Prior Functional Status Start: 01/06/24 08:11 Freq: NEEDED Status: Active Protocol: Document 01/06/24 08:20 MB (Rec: 01/06/24 08:59 MB [id number]) Medical Review Prior Functional Status Medical History Reviewed Yes Diet/Fluid Consistency Regular Communication WNLs Mobility and Gait I Activities of Daily Living and IADL's I Prior Functional Level (Other details) I Social History Household Members spouse Living Arrangements House Number of Floors (Floors) One Floor Number of Stairs To Enter/Railing? Accessible, no steps Home Environment Standard Height Toilet,Walk in Shower,Built-In Shower Seat Home Equipment Front Wheel Walker,Bedside Commode,Hand Held Shower,Grab Bars In Shower Employment Status Retired M2 PT-IP Current Condition Start: 01/06/24 08:11 Freq: NEEDED Status: Active Protocol: Document 01/06/24 08:20 MB (Rec: 01/06/24 08:59 MB [id number]) Physical Therapy Current Condition Current Condition Evaluation Date 01/06/24 Treatment Diagnosis S/p L4-5 and L5-S1 fusion M3 PT-IP Subjective Start: 01/06/24 08:11 Freq: NEEDED Status: Active Protocol: Document 01/06/24 08:20 MB (Rec: 01/06/24 08:59 MB [id number]) Subjective Physical Therapy Visit Type Type Initial Evaluation Visit Start Time 08:20 Visit Stop Time 08:44 Number of INTERNAL CONTROL MANAGER Visits 0 Physical Therapy Visit Comments Patient Comments I was a little light-headed when I got up. Therapy Pain Assessment Pain When Pain Assessed At Rest Pain Present Pain Present Pain Reported Location back Intensity 3 Scale Used Numeric (0 - 10) Description Aching Pain Management Techniques Apply Cold,Distraction,Re- positioning M4 PT-IP Mobility and Gait Start: 01/06/24 08:11 Freq: NEEDED Status: Active Protocol: Document 01/06/24 08:20 MB (Rec: 01/06/24 08:59 MB [id number]) PT-Bed Mobility Assessment Rolling Type of Rolling Log Rolling,Roll to Right,Roll to Left,Bilateral Level of Assist Standby Assistance,1 Person Assistance Supine to Sit Supine to Sit Standby Assistance,1 Person Assistance Sit to Supine Sit to Supine Standby Assistance,1 Person Assistance Scooting Scooting to Edge of Bed Standby Assistance PT-Transfer Assessment Sit to and From Stand Sit to and from Stand Independent,Standby Assistance Equipment Transfer Assistive Device Gait Belt,Front Wheeled Walker Orthotic/Prosthetic Devices or Brace: No Transfers Transfer Destination Chair Transfer Technique Ambulation Transfer Ability Level of Assist Independent,Standby Assistance Comments Mobility Comments Pt just got up to chair before PT arrives to the room. He got up with nsg and reports a little light-headedness with getting up. BP and HR in LUE: 112/61, 89; standing 116/64, 96. After gait, 118/72, 100. Only requires SBA d/t teaching log roll technique and pt wishing cueing for this. Gait Assessment Gait Gait Assistance Required: Independent,Standby Assistance Distance (Feet) 100 Able to Maintain Weight Bearing Status No During Gait Assistive Devices Assistive Device Gait Belt,Front Wheeled Walker Orthotic/Prosthetic Devices or Brace: No Gait Deviations General Gait Pattern Antalgic Factors Limiting Gait Function Factors Limiting Gait Function Pain Comments Gait Comments Pt moves well post-op. Only requires SBA d/t first time up and pt concerned about light- headedness. He gait trains 100 'x2 PT-Balance Assessment Sitting Balance and Reactions Static Sitting Balance Ability Good Dynamic Sitting Balance Ability Good Standing Balance and Reactions Static Standing Balance Ability Good Dynamic Standing Balance Ability Good Device Used RW M5 PT-IP Objective Assessments Start: 01/06/24 08:11 Freq: NEEDED Status: Active Protocol: Document 01/06/24 08:20 MB (Rec: 01/06/24 08:59 MB [id number]) Orientation Orientation/Cognition Level of Alertness Alert Orientation Name,Age,Birthday,Month,Date, Year,Day of Week,Place, Situation Language Function Ability No Deficits Noted Safety Awareness Understands Safety Issues Memory Description No Deficits Noted Gross Range of Motion Upper Extremity ROM Impairments Defer to OT Lower Extremity ROM Assessment Within Functional Limits Strength Comments Strength Comments B LE strength at least 3/5 and not pressed on post-op Sensation Assessment Sensation Gross Sensation WNL M6 PT-IP Treatment Start: 01/06/24 08:11 Freq: NEEDED Status: Active Protocol: Document 01/06/24 08:20 MB (Rec: 01/06/24 08:59 MB [id number]) Physical Therapy Treatment Education Education Provided Precautions,Post-Op Packet, Safety Other Treatments Other Treatment Performed Ed in back precautions and log roll technique, hydration and monitoring BP, frequent change of position at home and proper napping and sleeping position in bed M7 PT-IP Assessment and Plan Start: 01/06/24 08:11 Freq: NEEDED Status: Active Protocol: Document 01/06/24 08:20 MB (Rec: 01/06/24 08:59 MB [id number]) PT Summary Assessment and Plan Potential Rehabilitation Potential Good Status of Condition at Evaluation Evolving Summary Impairments Balance Progress Towards Goals Safe For Discharge Assessment Summary Pt is a 73 y/o male doing well post-op day 1. PT instructs him in back precautions and log roll technique. He is SBA and then I with gait with RW. He will have support at home and she is nearby for assessment. He had light- headedness and lower BP with nsg this a.m. and his BP did not drop sit to standing or after gait today. Recommended pt check his BP at home. No further acute PT needs. He has OPPT set-up in 6 weeks. Frequency of Treatment Frequency Of Treatment Discharge Precautions Lumbar Precautions Log Roll,No Twisting,Limit Bending,Lifting Restriction of 10 lbs,Gait Belt above Incisional Area Weight Bearing Status Weight Bearing Status Weight Bear as Tolerated Recommendations To Nursing Amount of Assist Needed Standby Assistance,1 Person Assist Discharge Recommendations PT Discharge Recommendations Home with Assistance, Outpatient PT Transportation Needs at Discharge Private Vehicle
[2024-01-06 09:00] VITALS: BP 113/61
[2024-01-06] MEDS: ACETAMINOPHEN 325 MG TABLET 650 MG PO ×2 (09:00→14:30)
[2024-01-06] MEDS: FENOFIBRATE, MICRONIZED 67 MG CAPSULE 201 MG PO (09:00)
[2024-01-06] MEDS: DOCUSATE 100 MG CAPSULE PO (09:00)
--- NOTE | 2024-01-06 09:31 | OT.IP.EVAL ---
Current Diagnoses Spondylolisthesis, lumbar region (01/05/24) Spinal stenosis, lumbar region with neurogenic claudication (01/05/24) Surgery Performed Operation Date: 01/05/24 12:45 Actual Procedures p L4-5, L5-S1 TLIF with posterior instrumentation- Robot(Not Applicable) - Baldo Mccollum MD Past Medical History (Last Reviewed 01/06/24 @ 09:53 by Cheko Zamora PA-C) BPH (benign prostatic hyperplasia) Chronic kidney disease Coronary artery disease GERD (gastroesophageal reflux disease) Gout High cholesterol Hyperlipidemia Hypertension Spinal stenosis Surgical History (Last Reviewed 01/06/24 @ 09:53 by Cheko Zamora PA-C) Anesthesia H/O tooth extraction (11/2021) H/O vasectomy History of hemorrhoidectomy History of hip replacement (~03/2022) Hx of colonoscopy Occupational Therapy Inpatient Evaluation/Re-Eval M1 PT/OT-IP Prior Functional Status Start: 01/06/24 09:51 Freq: NEEDED Status: Active Protocol: Document 01/06/24 09:51 [facility] (Rec: 01/06/24 10:14 [facility] [id number]) Medical Review Prior Functional Status Medical History Reviewed Yes Diet/Fluid Consistency Regular Communication WNLs Mobility and Gait Had pain when walking and sitting but did not use a device. Activities of Daily Living and IADL's Had pain during ADL and IADL needs. Prior Functional Level (Other details) I Social History Household Members spouse Living Arrangements House Number of Floors (Floors) One Floor Number of Stairs To Enter/Railing? Accessible, no steps Home Environment Standard Height Toilet,Walk in Shower,Built-In Shower Seat Home Equipment Front Wheel Walker,Shower Seat with Backrest,Hand Held Shower,Differential Repairer,Grab Bars In Shower Employment Status Retired Additional Social History Comment Pt has a supportive to assist him at home. M2 OT-IP Current Condition Start: 01/06/24 09:51 Freq: Status: Active Protocol: Document 01/06/24 09:51 [facility] (Rec: 01/06/24 10:14 [facility] [id number]) Occupational Therapy Current Condition Current Condition Evaluation Date 01/06/24 Treatment Diagnosis S/P L4-5, L5-S1 Diagnosis Onset Date 01/05/24 Post Operative Precautions Lumbar Precautions Log Roll,No Twisting,Limit Bending,Lifting Restriction of 10 lbs,Gait Belt above Incisional Area M3 OT- IP Subjective and Pain Start: 01/06/24 09:51 Freq: Status: Active Protocol: Document 01/06/24 09:51 [facility] (Rec: 01/06/24 10:14 [facility] [id number]) OT- Subjective Occupational Therapy Visit Type Type Initial Evaluation Visit Start Time 08:52 Visit Stop Time 09:31 Occupational Therapy Visit Comments Patient Comments Pt agreed to get up and pt's in the room for OT eval. Patient/Caregiver Goals TO go home. OT Pain Assessment Pain When Pain Assessed At Rest Pain Present Pain Present Pain Reported Location back Intensity 2 Scale Used Numeric (0 - 10) M4 OT- IP ADL's Start: 01/06/24 09:51 Freq: Status: Active Protocol: Document 01/06/24 09:51 [facility] (Rec: 01/06/24 10:14 [facility] [id number]) OT [id number]-[place] General Evaluation Self-Feeding Ability Independent OT ADL-Grooming General Evaluation Grooming Ability Independent OT ADL-Oral Care General Eval Oral Care Ability Standby Assistance Areas of Assistance Retrieving/Set-Up of Items Comments Oral Care Comments Educated to hinge at his hips or spit into a cup to best follow his back precautions. OT ADL-Dressing Comments OT Dressing Comments Pt states his to assist and has a replenishment buyer at home. OT ADL-Toileting Comments OT Toileting Comments Educated that pt can urinate with the FWW over the toilet. Educated best to stand to wipe so able to best follow his back precautions. OT ADL-Bathing Comments OT Bathing Comments Pt not wanting to shower at this time. M5 OT- IP IADL's Start: 01/06/24 09:51 Freq: Status: Active Protocol: Document 01/06/24 09:51 [facility] (Rec: 01/06/24 10:14 [facility] [id number]) OT-Instrumental Activities of Daily Living Deficits IADL Deficits Identified Deficits Home Safety Awareness Awareness of Need for Assistance at Home Good Awareness Ability to Problem Solve Emergency Able to Problem Solve Situations Home Safety Comments Pt's to assist for his needs. Meal Preparation Meal Preparation Caregiver Provides Assist Technical Marketing Engineer Technical Marketing Engineer Caregiver Provides Assist M6 OT- IP Functional Cognition Start: 01/06/24 09:51 Freq: Status: Active Protocol: Document 01/06/24 09:51 [facility] (Rec: 01/06/24 10:14 [facility] [id number]) Cognitive Factors Limiting Selfcare Function Cognitive Ability Level of Alertness Alert Patient Orientation Name,Age,Birthday,Month,Date, Year,Day of Week,Place, Situation Attention Span Ability Capable of Focused Attention, Capable of Sustained Attention Ability to Follow Commands Able to Follow Multi-Step Commands Memory Description No Deficits Noted Safety Awareness Underestimates Need for Assistance Cognitive Comments Cognitive Assessment Comments Pt needing safety cues for FWW to keep the FWW in front of him at all times. OT- Vision and Hearing OT- Hearing Assessment OT- Hearing Assessment WFL OT- Vision Assessment Visual Acuity Glasses All The Time M7 OT- IP Mobility and Balance Start: 01/06/24 09:51 Freq: Status: Active Protocol: Document 01/06/24 09:51 [facility] (Rec: 01/06/24 10:14 [facility] [id number]) OT-Transfer Assessment Sit to and From Stand Sit to and from Stand Standby Assistance Transfers Transfer Ability Standby Assistance Technique Transfer Destination Chair,Toilet Transfer Technique Stand Step Pivot Devices Transfer Assistive Devices Gait Belt,Front Wheeled Walker Comments Mobility Comments SBA for FWW. Pt needing intial vc to keep the FWW in front of his and not twist. BP sitting 102/58, standing 97/59 , and after brushing his teeth feeling woozy and BP dropped to 88/61, nursing notified. When over car transfers with pt and his . OT- Balance Assessment Sitting Balance and Reactions Static Sitting Balance Ability Normal Dynamic Sitting Balance Ability Normal Standing Balance and Reactions Static Standing Balance Ability Normal Dynamic Standing Balance Ability Good M9 OT- IP Assessment and Plan Start: 01/06/24 09:51 Freq: Status: Active Protocol: Document 01/06/24 09:51 [facility] (Rec: 01/06/24 10:14 [facility] [id number]) OT Summary Assessment and Plan Potential Rehabilitation Potential Excellent Analytic Complexity at Evaluation Low Summary OT Impairments Pain Progress Towards Goals Progressing Toward Goals Assessment Summary Pt low complexity and main barrier are pain, and having some hypotension. Pt doing well with his back precautions and pt's able to guera/ doff the gait belt and has good understanding of how to assist the pt. Pt has no further OT needs and to go home when medically stable. Discharge Recommendations OT Discharge Recommendations Home with Assistance Transportation Needs at Discharge Private Vehicle
--- NOTE | 2024-01-06 09:50 | P.DS_ITS ---
History of Present Illness History of Present Illness Date Patient Seen: 01/06/24 Time Patient Seen: 09:50 Chief complaint: back pain, left leg ache Narrative: Patient's pain is mild. Denies fever or chills. No nausea or vomiting. His is available at home to assist him. Patient able to walk in the halls. He just had his catheter removed as not yet urinated on his own. Discharge Providers Provider Date of admission: 01/05/24 11:10 Discharge Date: 01/06/24 Primary care physician: Leander Emanuel DO Consults: 01/05/24 20:29 Consult to Occupational Therapy Evaluate & Treat Comment: Physician Instructions: Evaluate and treat Consult to Physical Therapy Evaluate & Treat Comment: Physician Instructions: Evaluate and Treat Discharge provider: Cheko Zamora PA-C Summary Hospital Course Discharge Diagnosis: 1. L4-5, L5-S1 spinal stenosis 2. L5-S1 spondylolisthesis Hospital Course: 1. L4-5, L5-S1 Postero-lateral and posterior interbody fusion 2. L4-5, L5-S1 interbody cage placement. 3. L4-5, L5-S1 decompressive laminectomy with bilateral facetecomies 4. L4-5, L5-S1 Posterior segmental instrumentation 5. [place] of bone marrow from iliac crest 6. Utilization of microsurgical technique and operating microscope 7. Utilization of robotic assisted navigation Same procedure as scheduled: Yes Indications: Patient has been having chronic back pain and worsening lumbar radiculopathy mostly in the left leg. Patient was found have a grade 2 anterolisthesis at L5-S1 with severe foraminal stenosis left worse than right at L4-5 and L5-S1 level correlating with his back pain as well as leg pain. Patient failed multiple conservative management with worsening pain weakness and numbness in his lower extremity. Patient has been having difficulty performing activity of daily living. After discussing risks benefits of treatment options, patient elected proceed with surgery. Surgeon: Baldo Mccollum Commercial Lender: Evy Lozano Click Yes if Unassisted: No Anesthesia Type: General Operative Notes Closure Type: primary Specimen(s): none sent Prosthetic devices, grafts, tissues, transplants, or devices: Globus CREO MIS screws, Rise cages Applied: catheter Estimated Blood Loss (mL): 200 Blood products transfused: none Patient admitted to the hospital for L4-L5, L5-S1 fusion. Patient consented to the same. Patient had fusion on January 05, 2024. Patient is back in his room recovering well as in stable condition. Patient has been up walking. Patient had his catheter removed and not yet urinated on his own. Multimodal pain management. Limit bending, lifting, twisting. He will be discharged home today if able to urinate on his own and if his blood pressure stabilizes. Exam Vital Signs (past 8 hours): - 01/06/24 04:00 01/06/24 08:53 01/06/24 09:00 Temperature 98.1 F 98.4 F Pulse Rate 90 90 Respiratory Rate 20 18 Blood Pressure 108/60 100/53 L 113/61 Pulse Oximetry 94 93 Oxygen Flow Rate 0 Oxygen Delivery Method Room Air Oxygen Flow Rate 0 Narrative Exam Narrative: 73-year-old male sitting comfortably in bedside chair in no apparent distress. Motor functions intact bilateral lower extremities. Const General: cooperative and comfortable Nutritional Appearance: average body habitus Resp Effort & Inspection: normal respiratory effort and able to speak in complete sentences Objective Labs 01/06/24 04:04 Labs: Laboratory Results - last 24 hr 01/06/24 04:04 Hgb 14.2 Hct 42.9 PFSH Medical History Spinal stenosis Chronic kidney disease Coronary artery disease GERD (gastroesophageal reflux disease) Hyperlipidemia Hypertension BPH (benign prostatic hyperplasia) Gout High cholesterol Surgical History H/O vasectomy Hx of colonoscopy H/O tooth extraction (11/2021) Anesthesia History of hip replacement (~03/2022) History of hemorrhoidectomy Family History Father Congestive heart failure Hyperlipidemia Hypertension Mother Stroke Brother Cancer Social History household members: spouse Smoking Status: Never smoker alcohol intake: current Discharge Assessment & Plan Assessment and Plan Assessment: Patient progressing as expected status post L4-L5, L5-S1 fusion Plan of Treatment: Multimodal pain management Follow up Orthopedics 2 weeks Keep dressing clean and dry Limit bending, twisting, lifting Discharge home today Discharge Plan Discharge Plan Patient Disposition: Home Provider Discharge Comment: Follow up at [facility] in 2 weeks for post-op appointment and staple removal Discharge orders & Medications Prescriptions: New acetaminophen 325 mg Tablet 650 mg PO Q6H PRN (Reason: Fever/Mild Pain (1-3)) Qty: 60 0RF hydrocodone-acetaminophen 5-325 mg Tablet 2 tab PO Q4H PRN (Reason: Pain, Severe (7-10)) Qty: 40 0RF docusate sodium 100 mg Capsule 100 mg PO BID Qty: 10 0RF Continued terazosin 2 mg capsule 2 mg PO BEDTIME Qty: 90 3RF atorvastatin 20 mg tablet 20 mg PO BEDTIME Qty: 90 3RF fenofibrate 160 mg tablet 160 mg PO DAILY Qty: 90 3RF lisinopril 20 mg tablet 20 mg PO DAILY Qty: 90 3RF aspirin 81 mg Tablet,Chewable 81 mg PO DAILY omeprazole 20 mg Capsule,Delayed Release(Dr/Ec) 20 mg PO DAILY Follow up/Referrals: Baldo Mccollum MD [Physician] - (2 weeks as scheduled) Leander Emanuel DO [Primary Care Provider] - Diet/Activity/Treatments Diet: Diet as Tolerated Activity: Limit bending, twisting, lifting Cold/Heat Therapy: Heat pack to the low back as needed for muscle spasms. Ice for pain control as needed. Skin/Wound/Dressing Care Report to your healthcare provider any signs of infection, such as:: chills, fever, night sweats, unusual drainage and unusual redness Dressing: Keep dressing clean and dry. No soaking the incision site in pools or tubs. No topical ointments or creams to the incision site. Visit Report/Discharge Packet Instructions: DI for Prescription Opioid Use, DI for Transforaminal Lumbar Interbody Fusion Stand Alone Forms: Patient Portal/API, Stroke Signs & Symptoms, Surgery Discharge Discharge Data Primary Care Provider: Leander Emanuel
--- NOTE | 2024-01-06 13:31 | CM.DANOTE ---
Discharge Planning/Care Management Advanced directive, confirm from FAMILY Start: 01/05/24 20:44 Freq: Q24H Status: Active Protocol: Document 01/05/24 20:44 AKP (Rec: 01/05/24 20:44 AKP [id number]) Advance Directive, confirm on record Time 20:44 Person contacted to bring in if she can Copy received No CM Discharge Assessment Start: 01/06/24 13:26 Freq: Status: Active Protocol: Document 01/06/24 13:26 JW (Rec: 01/06/24 13:30 JW [id number]) Discharge Planning Assessment Assigned Chain Machine Operator FABIÁN Robles DPOA/Assigned Designee Name Bonnie Meenndez, spouse Contact Information [phone] Advance Directives? Yes Advance Directives on File No History Provided By Patient,Medical Record Prior Living Arrangements House Household Members spouse Type of transporation used prior to Drives own vehicle admit Independent with ADL's Yes Is patient alert and oriented? Yes Barriers to Discharge No Comment Patient is POD 1 from spinal surgery, patient planned for return home w/spouse, indp and active at baseline. PT has cleared patient for this plan. No needs identified from this CM team. Discharge Plan Home Transportation Arrangement Spouse Referrals Initiated None needed
== END 2024-01-06 15:35 | disposition home or self-care (01) | DRG 455 ==
PROVIDERS: Admitting Provider Orthopaedic Surgery Orthopaedic Surgery of the Spine; PCP Family Medicine; Referring Provider Orthopaedic Surgery Orthopaedic Surgery of the Spine; Visit Provider Orthopaedic Surgery Orthopaedic Surgery of the Spine
PROC: 0SG00AJ Fusion of Lumbar Vertebral Joint with Interbody Fusion Device, Posterior Approach, Anterior Column, Open Approach (ICD-10-PCS; principal; 2024-01-05 12:45)
DX: M48.061 Spinal stenosis, lumbar region without neurogenic claudication (principal); M43.17 Spondylolisthesis, lumbosacral region; M48.07 Spinal stenosis, lumbosacral region; I10 Essential (primary) hypertension; E78.5 Hyperlipidemia, unspecified; K21.9 Gastro-esophageal reflux disease without esophagitis
CPT/HCPCS: 36415; 72100; 76000; 85014; 85018; 97161; 97165; 97530; 97535; C1713; C1821; C9290; J0171; J0330; J0690; J1100; J1170; J2250; J2405; J2704; J3010; J3410

== ENCOUNTER → 2024-02-29 14:38 | Outpatient (CLI) | payer MEDICARE, OTHER, SELFPAY ==
[2024-02-14 11:26] VITALS: BMI 32.2
[2024-02-29 16:02] LABS: Add Manual Diff / Slide Review NO; Basophils Absolute Auto 0 /uL (0-100); Basophils Percent Auto 0.6 % (0-2); Eosinophils Absolute Auto 400 /uL (0-450); Eosinophils Percent Auto 5.6 % (2-4); Hematocrit 46.3 % (41-53); Hemoglobin 15.2 g/dL (13.5-17.5); Lymphocytes Absolute Auto 2100 /uL (1100-4500); Lymphocytes Percent Auto 31.6 % (25-40); Mean Corpuscular HGB Conc 32.8 % (30-36); Mean Corpuscular Hemoglobin 28.4 PG (26-34); Mean Corpuscular Volume 86.7 fL (80-100); Monocytes Absolute Auto 600 /uL (0-900); Monocytes Percent Auto 8.7 % (3-14); Neutrophils Absolute Auto 3500 /uL (1500-7000); Neutrophils Percent Auto 53.5 % (50-75); Platelet Count 241 X10^3/uL (150-400); Red Blood Cell Count 5.34 X10^6/uL (4.5-5.9); Red Cell Distribution Width 14.3 % (11.6-14.8); White Blood Cell Count 6.6 X10^3/uL (4.5-11.0)
[2024-02-29 16:15] LABS: Alanine Aminotransferase 26 IU/L (<50); Albumin 4.5 g/dL (3.5-5.0); Albumin Globulin Ratio 1.6 (1.0-2.8); Alkaline Phosphatase 47 U/L (38-126); Aspartate Aminotransferase 35 IU/L (17-59); BUN Creatinine Ratio 18.3 (6-22); Bilirubin Total 0.7 mg/dL (0.2-1.3); Blood Urea Nitrogen 22 mg/dL (9-20); Calcium 9.7 mg/dL (8.4-10.2); Carbon Dioxide 28 mmol/L (22-32); Chloride 108 mmol/L (98-107); Cholesterol 160 mg/dL (140-199); Estimated Glomerular Filt Rate > 60 mL/min (>60); Globulin 2.8 g/dL (1.7-4.1); Glucose 105 mg/dL (80-110); HDL Cholesterol 29 mg/dL (40-60); HEMOLYSIS 23 (0-50); LDL Cholesterol Calculated 81 mg/dL (<100); Potassium 4.3 mmol/L (3.4-5.1); Sodium 140 mmol/L (137-145); Total Protein 7.3 g/dL (6.3-8.2); Triglycerides 252 mg/dL (35-150); Uric Acid 4.3 mg/dL (3.5-8.5)
[2024-02-29 16:43] LABS: Prostate Specific Antigen Scrn 3.31 ng/mL (0.1-4.0)
== END ==
LOC: LAB 14:40
PROVIDERS: PCP Family Medicine; Referring Provider Family Medicine; Visit Provider Family Medicine
DX: Z12.5 Encounter for screening for malignant neoplasm of prostate (principal); I25.10 Atherosclerotic heart disease of native coronary artery without angina pectoris; E78.5 Hyperlipidemia, unspecified; I10 Essential (primary) hypertension; N40.0 Benign prostatic hyperplasia without lower urinary tract symptoms; M10.9 Gout, unspecified
CPT/HCPCS: 36415; 80053; 80061; 84550; 85025; G0103

== ENCOUNTER → 2024-06-20 08:33 | Outpatient (CLI) | payer MEDICARE, OTHER, SELFPAY ==
[2024-02-14 11:26] VITALS: BMI 32.2
[2024-06-20 10:12] LABS: Alanine Aminotransferase 27 IU/L (<50); Albumin 4.3 g/dL (3.5-5.0); Albumin Globulin Ratio 1.5 (1.0-2.8); Alkaline Phosphatase 40 U/L (38-126); Aspartate Aminotransferase 37 IU/L (17-59); BUN Creatinine Ratio 14.8 (6-22); Bilirubin Total 0.9 mg/dL (0.2-1.3); Blood Urea Nitrogen 21 mg/dL (9-20); Calcium 10.3 mg/dL (8.4-10.2); Carbon Dioxide 27 mmol/L (22-32); Chloride 107 mmol/L (98-107); Cholesterol 179 mg/dL (140-199); Estimated Glomerular Filt Rate 52 mL/min (>60); Globulin 2.9 g/dL (1.7-4.1); Glucose 94 mg/dL (80-110); HDL Cholesterol 35 mg/dL (40-60); HEMOLYSIS < 15 (0-50); LDL Cholesterol Calculated 112 mg/dL (<100); Potassium 4.6 mmol/L (3.4-5.1); Sodium 139 mmol/L (137-145); Total Protein 7.2 g/dL (6.3-8.2); Triglycerides 161 mg/dL (35-150)
[2024-06-21 13:11] LABS: PSA, Total 1.5 ng/mL (0.0-4.0)
== END ==
PROVIDERS: PCP Family Medicine; Referring Provider Family Medicine; Visit Provider Family Medicine
DX: E78.5 Hyperlipidemia, unspecified (principal); I10 Essential (primary) hypertension; N40.0 Benign prostatic hyperplasia without lower urinary tract symptoms; R97.20 Elevated prostate specific antigen [PSA]
CPT/HCPCS: 36415; 80053; 80061; 84153; 84154

== ENCOUNTER → 2024-10-03 09:18 | Outpatient (CLI) | payer MEDICARE, OTHER, SELFPAY ==
[2024-02-14 11:26] VITALS: BMI 32.2
[2024-10-03 10:48] LABS: Alanine Aminotransferase 31 IU/L (<50); Albumin 4.1 g/dL (3.5-5.0); Albumin Globulin Ratio 1.3 (1.0-2.8); Alkaline Phosphatase 42 U/L (38-126); Aspartate Aminotransferase 33 IU/L (17-59); BUN Creatinine Ratio 17.3 (6-22); Bilirubin Total 0.6 mg/dL (0.2-1.3); Blood Urea Nitrogen 23 mg/dL (9-20); Calcium 10.4 mg/dL (8.4-10.2); Carbon Dioxide 26 mmol/L (22-32); Chloride 106 mmol/L (98-107); Cholesterol 156 mg/dL (140-199); Estimated Glomerular Filt Rate 56 mL/min (>60); Globulin 3.1 g/dL (1.7-4.1); Glucose 94 mg/dL (80-110); HDL Cholesterol 29 mg/dL (40-60); HEMOLYSIS < 15 (0-50); LDL Cholesterol Calculated 101 mg/dL (<100); Potassium 4.8 mmol/L (3.4-5.1); Sodium 137 mmol/L (137-145); Total Protein 7.2 g/dL (6.3-8.2); Triglycerides 131 mg/dL (35-150)
[2024-10-03 11:17] LABS: TSH w/ Reflex to FT4 0.57 uIU/mL (0.47-4.68)
== END ==
PROVIDERS: PCP Family Medicine; Referring Provider Family Medicine; Visit Provider Family Medicine
DX: N18.9 Chronic kidney disease, unspecified (principal); E78.5 Hyperlipidemia, unspecified
CPT/HCPCS: 36415; 80053; 80061; 84443

== ENCOUNTER → 2025-05-04 08:33 | Outpatient (CLI) | payer MEDICARE, OTHER, SELFPAY ==
[2024-02-14 11:26] VITALS: BMI 32.2
[2025-05-04 09:24] LABS: Add Manual Diff / Slide Review NO; Basophils Absolute Auto 0 /uL (0-100); Basophils Percent Auto 0.6 % (0-2); Eosinophils Absolute Auto 200 /uL (0-450); Hematocrit 49.1 % (41-53); Hemoglobin 16.1 g/dL (13.5-17.5); Lymphocytes Absolute Auto 1700 /uL (1100-4500); Lymphocytes Percent Auto 30.8 % (25-40); Mean Corpuscular HGB Conc 32.7 % (30-36); Mean Corpuscular Volume 88.7 fL (80-100); Monocytes Absolute Auto 600 /uL (0-900); Monocytes Percent Auto 10.3 % (3-14); Neutrophils Absolute Auto 2900 /uL (1500-7000); Neutrophils Percent Auto 54.3 % (50-75); Platelet Count 255 X10^3/uL (150-400); Red Blood Cell Count 5.54 X10^6/uL (4.5-5.9); Red Cell Distribution Width 14.6 % (11.6-14.8); White Blood Cell Count 5.4 X10^3/uL (4.5-11.0)
[2025-05-04 09:47] LABS: Alanine Aminotransferase 26 IU/L (<50); Albumin 4.5 g/dL (3.5-5.0); Albumin Globulin Ratio 1.8 (1.0-2.8); Alkaline Phosphatase 46 U/L (38-126); Aspartate Aminotransferase 37 IU/L (17-59); BUN Creatinine Ratio 19.7 (6-22); Bilirubin Total 0.9 mg/dL (0.2-1.3); Blood Urea Nitrogen 26 mg/dL (9-20); Calcium 10.4 mg/dL (8.4-10.2); Carbon Dioxide 24 mmol/L (22-32); Chloride 106 mmol/L (98-107); Cholesterol 185 mg/dL (140-199); Estimated Glomerular Filt Rate 57 mL/min (>60); Globulin 2.5 g/dL (1.7-4.1); Glucose 86 mg/dL (70-99); HDL Cholesterol 34 mg/dL (40-60); HEMOLYSIS < 15 (0-50); LDL Cholesterol Calculated 126 mg/dL (<100); Potassium 4.8 mmol/L (3.4-5.1); Sodium 138 mmol/L (137-145); Triglycerides 126 mg/dL (35-150); Uric Acid 5.1 mg/dL (3.5-8.5)
[2025-05-04 09:52] LABS: Hemoglobin A1C% w Est Avg Glu 5.2 % (4.0-6.0)
[2025-05-08 06:41] LABS: PSA Free % 21.3 % (.); PSA, Total 1.6 ng/mL (0.0-4.0)
== END ==
PROVIDERS: PCP Family Medicine; Referring Provider Family Medicine; Visit Provider Family Medicine
DX: M1A.00X0 Idiopathic chronic gout, unspecified site, without tophus (tophi) (principal); E78.2 Mixed hyperlipidemia; N40.1 Benign prostatic hyperplasia with lower urinary tract symptoms
CPT/HCPCS: 36415; 80053; 80061; 83036; 84153; 84154; 84550; 85025